=== PATIENT | male | born 1980 | race Caucasian/White ===

== ENCOUNTER 2022-12-31 14:09 | Emergency (ER) | payer OTHER ==
[~2022-12-31] VITALS: Ht 175.2 cm
[~2022-12-31 14:09] MED LIST: FLECAINIDE ACET50 M1 PO; Lopressor25 MG PO; PROZAC20 MG PO
[2022-12-31] MEDS ORDERED: Ondansetron4 MG PO (14:29)
[2022-12-31 14:58] LABS: HEMATOCRIT 43.6 % (42.0-52.0); MEAN CELL VOLUME 85.5 fl (80.0-94.0); MEAN CORPUSCULAR HGB 27.3 pg (27.0-31.0); MEAN CORPUSCULAR HGB CONC 31.9 g/dl (33.0-37.0); MEAN PLATELET VOLUME 8.7 fl (9.6-12.3); PLATELET COUNT AUTOMATED 235 10*3/uL (130-400); RED CELL DISTRI WIDTH 13.8 % (0-14.5); WHITE BLOOD COUNT 7.5 10*3/uL (4.8-10.8)
[2022-12-31 15:02] LABS: MANUAL DIFF REFLEX YES
[2022-12-31 15:13] LABS: ALKALINE PHOSPHATASE 77 U/L (46-116); BUN 12 mg/dl (9-23); CHLORIDE 105 mmol/L (98-107); LIPASE 32 U/L (12-53); POTASSIUM 3.4 mmol/L (3.4-5.1); SGPT/ALT 26 U/L (10-49); TOTAL PROTEIN 6.9 gm/dL (6.0-8.0)
[2022-12-31 15:37] LABS: PLATELET SUFFICIENCY NORMAL (NORMAL); TOTAL CELLS COUNTED 100 #CELLS
== END 2022-12-31 15:45 | disposition home or self-care (01) ==
LOC: ED 14:09
PROVIDERS: Emergency Medicine
DX: R11.2 Nausea with vomiting, unspecified (principal); R19.7 Diarrhea, unspecified; I48.91 Unspecified atrial fibrillation; F41.9 Anxiety disorder, unspecified; Z91.040 Latex allergy status; Z88.8 Allergy status to other drugs, medicaments and biological substances; Z98.890 Other specified postprocedural states

== ENCOUNTER → 2023-07-26 | Outpatient (CLI) | payer OTHER ==
[~2023-07-26] MED LIST changes: +Ondansetron4 MG PO
[2023-07-26 07:55] LABS: BASO # 0.1 10*3/uL (0.0-0.1); EOS # 0.1 10*3/uL (0.0-0.4); EOS % 1.6 % (1.0-4.0); HEMATOCRIT 45.5 % (42.0-52.0); LYMPH # 1.6 10*3/uL (1.3-4.4); LYMPH % 31.2 % (27.0-41.0); MEAN CELL VOLUME 86.2 fl (80.0-94.0); MEAN CORPUSCULAR HGB 27.3 pg (27.0-31.0); MEAN CORPUSCULAR HGB CONC 31.6 g/dl (33.0-37.0); MEAN PLATELET VOLUME 8.6 fl (9.6-12.3); MONO # 0.4 10*3/uL (0.1-1.0); MONO % 8.9 % (3.0-9.0); NEUT # 2.8 10*3/uL (2.3-7.9); NEUT % 57.1 % (47.0-73.0); PLATELET COUNT AUTOMATED 260 10*3/uL (130-400); RED BLOOD COUNT 5.28 10*6/uL (4.50-5.90); RED CELL DISTRI WIDTH 13.9 % (0-14.5)
[2023-07-26 08:28] LABS: ALKALINE PHOSPHATASE 94 U/L (46-116); BUN 13 mg/dl (9-23); CHLORIDE 107 mmol/L (98-107); POTASSIUM 3.9 mmol/L (3.4-5.1); SGPT/ALT 31 U/L (5-49); TOTAL PROTEIN 7.3 gm/dL (6.0-8.0)
[2023-07-27 07:06] LABS: HBSAG Negative (Negative); HEP B CORE AB, IGM Negative (Negative); HEPATITIS C ANTIBODY Non Reactive (Non Reactive)
[2023-07-27 12:07] LABS: ANTI-RNP ANTIBODIES 0.3 AI (0.0-0.9)
[2023-07-27 13:06] LABS: CCP ANTIBODIES IGG/IGA 2 units (0-19)
[2023-07-28 12:07] LABS: DVVTMIXRFX CHG (NP); LUPUS DRVVT 54.9 sec (0.0-47.0); PTT-LA 37.1 sec (0.0-43.5)
[2023-07-28 13:06] LABS: LUPUS REFLEX INTERPRETATION Comment: (.)
== END | disposition home or self-care (01) ==
LOC: LAB 07:30
PROVIDERS: ATTEND Orthopaedic Surgery
DX: M25.572 Pain in left ankle and joints of left foot (principal); M25.571 Pain in right ankle and joints of right foot; Z79.1 Long term (current) use of non-steroidal anti-inflammatories (NSAID)

== ENCOUNTER 2025-06-11 12:03 | Emergency (ER) | payer OTHER ==
[~2025-06-11] VITALS: Ht 170.1 cm; Wt 113.4 kg
[2025-06-11] MEDS ORDERED: Metoclopramide Hydrochloride 10 MG/2 ML VIAL IV ONE (12:25)
[2025-06-11] MEDS ORDERED: SODIUM CHLORIDE 0.9% 1,000 ML IV ONE (12:25)
[2025-06-11] MEDS ORDERED: diphenhydrAMINE hydrochloride 50 MG/ML VIAL IV ONE (12:25)
[2025-06-11 12:37] LABS: BASO # 0.1 10*3/uL (0.0-0.1); BASO % 0.9 % (0.0-1.0); EOS # 0.1 10*3/uL (0.0-0.4); EOS % 1.0 % (1.0-4.0); MEAN CELL VOLUME 86.2 fl (80.0-94.0); MEAN CORPUSCULAR HGB 26.3 pg (27.0-31.0); MEAN PLATELET VOLUME 8.5 fl (9.6-12.3); MONO # 0.5 10*3/uL (0.1-1.0); MONO % 8.5 % (3.0-9.0); NEUT # 3.3 10*3/uL (2.3-7.9); NEUT % 57.2 % (47.0-73.0); NUCLEATED RED BLOOD CELL 0.0 % (0.0-0.0); NUCLEATED RED BLOOD CELL 0.0 10*3/uL (0.0-0.0); PLATELET COUNT AUTOMATED 286 10*3/uL (130-400); RED CELL DISTRI WIDTH 13.5 % (0-14.5)
[2025-06-11 12:58] LABS: BUN 10 mg/dl (9-23)
[2025-06-11] MEDS ORDERED: PEPCID20 MG PO (13:59)
== END 2025-06-11 14:05 | disposition home or self-care (01) ==
LOC: ED 12:03
PROVIDERS: Emergency Medicine
DX: R11.2 Nausea with vomiting, unspecified (principal); Z79.899 Other long term (current) drug therapy; Z98.890 Other specified postprocedural states

== ENCOUNTER 2025-07-30 21:14 | Emergency (ER) | payer OTHER ==
[~2025-07-30] VITALS: Ht 170.1 cm; Wt 113.4 kg
[~2025-07-30 21:14] MED LIST changes: +PEPCID20 MG PO
[2025-07-30 22:21] LABS: BASO # 0.0 10*3/uL (0.0-0.1); BASO % 0.7 % (0.0-1.0); EOS # 0.1 10*3/uL (0.0-0.4); EOS % 1.1 % (1.0-4.0); MEAN CELL VOLUME 85.6 fl (80.0-94.0); MEAN CORPUSCULAR HGB 27.0 pg (27.0-31.0); MEAN PLATELET VOLUME 8.8 fl (9.6-12.3); MONO # 0.5 10*3/uL (0.1-1.0); MONO % 9.1 % (3.0-9.0); NEUT # 3.3 10*3/uL (2.3-7.9); NEUT % 59.8 % (47.0-73.0); NUCLEATED RED BLOOD CELL 0.0 % (0.0-0.0); NUCLEATED RED BLOOD CELL 0.0 10*3/uL (0.0-0.0); PLATELET COUNT AUTOMATED 222 10*3/uL (130-400); RED CELL DISTRI WIDTH 14.1 % (0-14.5)
[2025-07-30 22:54] LABS: BUN 12 mg/dl (9-23); SGPT/ALT 23 U/L (5-49)
[2025-07-30 22:58] LABS: ETHYL ALCOHOL < 3.0 mg/dl (<3)
== END 2025-07-30 22:34 | disposition home or self-care (01) ==
LOC: ED 21:14
PROVIDERS: Internal Medicine
DX: Z00.00 Encounter for general adult medical examination without abnormal findings (principal); F41.9 Anxiety disorder, unspecified; I48.91 Unspecified atrial fibrillation; Z88.8 Allergy status to other drugs, medicaments and biological substances